=== PATIENT | female | born 1960 | race Caucasian/White ===

== ENCOUNTER 2016-07-23 08:04 | Emergency (ER) | payer OTHER ==
[~2016-07-23] VITALS: Ht 171.4 cm; Wt 61.4 kg
[~2016-07-23 08:04] MED LIST: ONDA4TAB12 PO; ZIT250 PO
[2016-07-23 08:05] VITALS: BP 147/96; PULSE 101; RESP 20; O2SAT 98
--- NOTE | 2016-07-23 08:37 | ED.REPORT ---
HPI-Syncope Date of Service Jul 23, 2016 ED Provider: Dr. Maldonado A 56 year old female with a history of chronic left elbow pain presents to the ED complaining of bilateral leg weakness that occurred yesterday while she was walking and talking on the phone at her Son's soccer game. She reports that she had no control of her legs, and "crumpled." She fell, and landed on her bad left elbow that is horribly painful now. She reports left hand finger tingling in thumb and first finger but she can still move them, this tingling sensation not being present before. She also has pain in right ear. She denies dizziness or, nausea. She denies any chest pain, SOB, lightheadedness, or dizziness overnight. Nursing Notes Stated Complaint: POSS BROKEN ARM/VERTIGO Chief Complaint: General Complaint Nursing Notes Reviewed: Yes Allergies: Coded Allergies: amoxicillin (Verified Adverse Reaction, Severe, nausea/vomiting, 07/23/16) Scheduled Azithromycin (Zithromax) 250 Mg Tablet 250 MG PO DAILY Ondansetron ODT (Ondansetron ODT) 4 Mg Tab.rapdis 4 MG PO QID General Time Seen by Provider: 08:36 Chief Complaint Other (weakness) Hx Obtained From: Patient Arrived By: Walk-in Onset Occurred: Yesterday Symptom Duration: Since onset Progression Since Onset: Unchanged Severity: Current: Mild Severity: Maximum: Mild Recent Healthcare: No recent doctor visit Similar Sx Previous: No Past Medical History Past Medical History Notes: PCP: [facility] Past Medical History Alcoholism Pancreatitis (2013) Denies prior [facility] Reports: Hypertension, Denies: Diabetes mellitus Past Surgical History left elbow Fx with surgery (same site as injury today) Smoking History Never Smoker Social History THC Chocolates that make her sleep, taken 6 over last week. Alcohol Use: 1-3 per day Drug Use: Denies drug use Ambulatory Status Independent Review of Systems Review of Systems Note: Has taken Vicodin in the past, "normally 2 pill person" Last meal was last night had water at 6 AM this morning Ears / Nose / Throat: Reports: Earache right Respiratory: Denies: Shortness of breath Cardiovascular: Denies: Chest pain GI: Denies: Nausea Musculoskeletal: Reports: Extremity pain (left elbow ) Neurologic: Reports: Numbness (left hand finger tingling), Weakness (legs), Denies: Dizziness, Lightheaded Complete sys rev & neg: except as marked. Physical Exam Initial Vital Signs Vital Signs (First) Date Time Temp Pulse Resp B/P Pulse Ox O2 Delivery O2 Flow Rate FiO2 07/23/16 08:05 36.0 101 20 147/96 98 Room Air Initial VS: Reviewed General/Constitutional: Awake, Alert Respiratory / Chest: Atraumatic, Breath sounds NL, Breath sounds = bilat, No respiratory distress, No rales, No rhonchi, No wheezing Cardiovascular: Heart rate NL, Regular rhythm, Heart sounds NL, No gallop, No murmurs, No rubs Lower Extremity / Pelvis / MS: Atraumatic, Inspection NL Neurologic: Oriented X3, Speech NL Non-focal neurologic exam Head / Eyes: Normocephalic, PERRL, EOMI ENT: Tympanic membs NL (Both ears are unremarkable. ) Mild tenderness in right TMJ joint, able to open jaw completely. Abdomen: No guarding, No rebound Skin: Warm, Dry Right Elbow: Positive: ROM reduced... Left elbow is obviously deformed, ecchymosis in proximal humerus and proximal forearm. Minor swelling down to hand and numbness in thumb and first and second fingers. Limited ROM due to pain. Surgical scars medially and laterally. Interpretation & Diagnostics Lab Results Interpretation Result Diagram: 07/23/16 0915 07/23/16 0915 Test 07/23/16 09:15 White Blood Count 8.5th/mm3 (3.8-10.1) Red Blood Count 3.98mil/mm3 (3.90-5.20) Hemoglobin 13.0g/dL (12.0-15.6) Hematocrit 40.4% (35.0-46.0) Mean Corpuscular Volume 101.5fL (81-100) Mean Corpuscular Hemoglobin 32.7pg (27.0-35.0) Mean Corpuscular Hemoglobin Concent 32.2% (32.0-37.0) Red Cell Distribution Width 12.6% (12.3-15.4) Platelet Count 210bil/L (150-400) Neutrophils (%) (Auto) 63.9% (40-74) Lymphocytes (%) (Auto) 26.0% (14-46) Monocytes (%) (Auto) 8.8% (4-12) Eosinophils (%) (Auto) 0.5% (0-5) Basophils (%) (Auto) 0.4% (0-3) Sodium Level 141mEq/L (134-144) Potassium Level 4.4mEq/L (3.5-5.2) Chloride Level 103mEq/L (97-108) Carbon Dioxide Level 18mmol/L (18-29) Blood Urea Nitrogen 25mg/dL (6-24) Creatinine 0.39mg/dL (0.57-1.00) Estimat Glomerular Filtration Rate 244mL/min (>59) Glucose Level 97mg/dL (60-99) Calcium Level 8.6mg/dL (8.5-10.1) Magnesium Level 2.1mg/dL (1.6-2.6) Total Bilirubin 0.2mg/dL (0.0-1.2) Aspartate Amino Transf (AST/SGOT) 34U/L (0-50) Alanine Aminotransferase (ALT/SGPT) 21U/L (0-32) Alkaline Phosphatase 45U/L (25-150) Troponin T < 0.010ug/L (0.0-0.011) Total Protein 7.5g/dL (6.4-8.4) Albumin 4.7g/dL (3.4-5.0) Alcohols 287mg/dL (0-10) Lab Results Interpretation: PROCEDURE: CT ELBOW LEFT W/O CONTRAST ([id number]) IMPRESSION: 1. Mildly displaced comminuted supracondylar distal humeral fracture demonstrates V-shaped intra-articular extension. 2. 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 Dictated by: Audie Yanez M.D. on 07/23/2016 at 10:17 Approved by: Audie Yanez M.D. on 07/23/2016 at 10:23 ECG Interpretation ECG Interpretation: Rate is 93. Sinus rhythm. No ischemia. Similar to 08/10/2015. Time: 09:06 Interpreted by: ED physician X-Ray Chest Interpretation Chest Xray Interpretation: IMPRESSION: No acute cardiopulmonary disease. Dictated by: Audie Yanez M.D. on 07/23/2016 at 9:00 Approved by: Audie Yanez M.D. on 07/23/2016 at 9:00 Interpretation / Wet Read by: Interpret - Radiologist X-Ray Interpretation Xray Interpretation: PROCEDURE: X-RAY LEFT FOREARM, TWO VIEWS ([id number]) Left Forearm XRay IMPRESSION: Distal comminuted humeral fracture. Question intra articular fracture. Order CT. [id number], 07/23/2016 Interpretation / Wet Read by: Anitha read ED physician Xray Interpretation: PROCEDURE: X-RAY LEFT HUMERUS, MINIMUM TWO VIEWS ([id number]) IMPRESSION: Mildly displaced supracondylar fracture of the distal humerus. Dictated by: Audie Yanez M.D. on 07/23/2016 at 9:49 Approved by: Audie Yanez M.D. on 07/23/2016 at 9:50 Interpretation / Wet Read by: Interpret - Radiologist Xray Interpretation: PROCEDURE: X-RAY LEFT FOREARM, TWO VIEWS ([id number]) IMPRESSION: Mildly displaced supracondylar fracture of the distal humerus. Dictated by: Audie Yanez M.D. on 07/23/2016 at 9:50 Approved by: Audie Yanez M.D. on 07/23/2016 at 9:51 Interpretation / Wet Read by: Interpret - Radiologist CT Head Interpretation IMPRESSION: No acute intracranial abnormalities. Dictated by: Audie Yanez M.D. on 07/23/2016 at 12:18 Procedures Procedure Notes: Left long-arm splint placed for comfort. Initial splint placed by the tech. Checked by me, neurovascularly intact. Still with the numbness in the thumb first and second finger as on initial presentation. Somewhat more comfortable with stabilization. Re-Eval/Medical Decision Med Decision/Clinical Course 56-year-old presents after a syncopal episode last night. She all of a sudden felt lightheaded legs were weak she fell to the ground landing on her left elbow. She comes in today complaining of left elbow pain. No chest pain or shortness of breath no dizziness and no acute neurologic signs aside from some numbness and tingling in the thumb first and second fingers related to the low injury. Syncopal workup is unremarkable with labs troponins EKG is reassuring. She does report an abnormal head CT a number of years ago that was supposed to be followed up. And then goes on to report 3 prior episodes similar to this in the last year. Head CT will be repeated at this time. Comminuted left interarticular distal humerus fracture. Reviewed by our orthopedists. Transfer to [facility] for surgical management. Splint placed for comfort. Minor decreased sensation in the thumb first and second fingers as mentioned otherwise neurovascularly intact. Alcoholism; she and her family are still in quite a bit of denial about the severity of this. Alcohol level this morning is 287 she states she had 2 glasses of wine last night. Starting to become a bit shaky and blood pressure increasing she has been here a couple of hours. 2 mg of Ativan given for withdrawal symptoms. Last meal was last night. She has been nothing by mouth while in the emergency department Source of Hx: Old records Re-Evaluation/Progress #1: Time of Eval: 08:56 Re-Evaluation/Progress Note: Explained plan for XRay. Patient understands and agrees with the plan. Re-Evaluation/Progress #2: Time of Eval: 09:34 Re-Evaluation/Progress Note: Rechecked patient and evaluated XRay results. Explained plan to perform CT. Re-Evaluation/Progress #3: Time of Eval: 10:48 Re-Evaluation/Progress Note: Discussed CT findings CT scan reviewed in the room at patient bedside. Informed her that orthopedic surgeon will be contacting us within half an hour with additional recommendations. Discussion regarding her alcohol level. Patient is aware that she is an alcoholic has been trying to substitute marijuana at night to reduce the amount of alcohol also recognizes that she has had issues with pills in the past. At this point not ready for treatment but says that she has been through treatment in the past and can certainly do it again. Re-Evaluation/Progress #4: Time of Eval: 11:22 Patient Status: Condition improved Re-Evaluation/Progress Note: Rechecked patient, explained consult with ortho, and explained plan for transfer to [facility]. Patient understands and agrees with the plan. All questions addressed. Re-Evaluation/Progress #5: Time of Eval: 11:35 Re-Evaluation/Progress Note: [facility] Discussed need for treating her developing alcohol withdrawal, we will add 2 mg by mouth Ativan now She describes a "funny finding" on a brain scan about 5 years ago that was supposed to be followed up. On further questioning she has had at least 3 episodes similar to this syncopal episode in the last year. Because of that we will go ahead and do a brain CT and make sure that the images are packs to [facility]. In discussion with accepting [facility] ER doctor Darion Glenn, he is aware of the syncope concern is the orthopedic concerns the alcohol concerns. We will send her to [facility] via BLS with all studies and labs available Re-Evaluation/Progress #6: Time of Eval: 12:40 Re-Evaluation/Progress Note: Ready For transport. Ativan helped significantly with the mild alcohol withdrawal. We will give her a milligram of IV Dilaudid for the arm pain in transit. Consultation #1: Referral / Consult Name: Krishna Flores MD Consulted With: Orthopedic Call Returned at: 10:35 Video Specialist: Agrees with eval, Agrees with plan Note: Discussed patient case with Dr. Flores via nurse. Dr. Flores will reuturn the call. Consultation #2: Referral / Consult Name: Krishna Flores MD Consulted With: Orthopedic Call Returned at: 11:13 Video Specialist: Agrees with eval, Agrees with plan Note: Discussed patient case with Dr. Flores who reviewed films. Severely comminuted in the setting of prior injury. clearly will need surgry, recomends transfer to [facility]. Consultation #3: Call Returned at: 11:32 Note: Discussed patient case with [facility]. Consultation #4: Referral / Consult Name: Krishna Flores MD Call Returned at: 11:47 Note: Discussed patient case in person with Dr. Flores who came down to the ED to ensure that the transfer process is going smoothly. Counseled Regarding: Diagnosis, Lab results, Need for follow-up, When/why to return to ED Discharge & Departure Impression: Primary Impression: Humerus distal fracture Encounter type: initial encounter Fracture type: closed Fracture morphology : other fracture Laterality: left Additional Impressions: Syncope Alcoholism Disposition: Transfer, Acute Care Facility Receiving Hospital: [facility] Transfer Accepted: Yes Transfer Reason: Higher level of care Discharge Condition All VS Reviewed: Yes Condition: Improved Referrals: Vaibhav Graham DO (PCP) Crit Care Except Billable Proc Time Spent: 30-74 minutes (37min) Zaynabibtrever Attestation Portions of this note were transcribed by Tian Go. I, Dr. Maldonado personally performed the history, physical exam and medical decision-making; I reviewed and confirmed the accuracy of the information in the transcribed note. Signed by: Cassie Castañeda, 07/23/2016, 1128. copies to: Vaibhav Graham Shawna L MD Jul 23, 2016 08:36 Tian Go Jul 23, 2016 08:54
[2016-07-23 09:00] VITALS: BP 138/88; PULSE 92; RESP 14; O2SAT 98
--- NOTE | 2016-07-23 09:02 | DRSVH ---
PROCEDURE: X-RAY CHEST ONE VIEW, PORTABLE ([id number]) INDICATIONS: 56 year-old female with syncope. TECHNIQUE: One view of the chest was acquired. COMPARISON: [facility], CR, XR CHEST 1VW (PORTABLE), 08/10/2015, 10:46. [facility], CR, CHEST 2VW, 11/13/2007, 11:51. FINDINGS: Surgical changes and devices: None. Lungs and pleura: No pleural effusions or pneumothorax. Lungs are clear. Mediastinum: Mediastinal contours appear normal. Heart size is normal. Bones and chest wall: No suspicious bony lesions. Overlying soft tissues appear unremarkable. IMPRESSION: No acute cardiopulmonary disease. Dictated by: Audie Yanez M.D. on 07/23/2016 at 9:00 Approved by: Audie Yanez M.D. on 07/23/2016 at 9:00
[2016-07-23] MEDS ORDERED: HYDROcodone-APAP 5-325 mg Tablet PO ONE (09:05)
[2016-07-23 09:45] VITALS: BP 127/70; PULSE 86; RESP 17; O2SAT 99
--- NOTE | 2016-07-23 09:51 | DRSVH ---
PROCEDURE: X-RAY LEFT HUMERUS, MINIMUM TWO VIEWS ([id number]) INDICATIONS: 56 year-old female with left arm pain after fall. TECHNIQUE: 2 views of the humerus were acquired. COMPARISON: None. FINDINGS: Bones: Mildly displaced supracondylar distal humeral fracture is present. No suspicious bony lesions . Soft tissues: No suspicious soft tissue calcifications. IMPRESSION: Mildly displaced supracondylar fracture of the distal humerus. Dictated by: Audie Yanez M.D. on 07/23/2016 at 9:49 Approved by: Audie Yanez M.D. on 07/23/2016 at 9:50
--- NOTE | 2016-07-23 09:52 | DRSVH ---
PROCEDURE: X-RAY LEFT FOREARM, TWO VIEWS ([id number]) INDICATIONS: 56 year-old female with left elbow pain after fall. TECHNIQUE: 2 views of the forearm were acquired. COMPARISON: [facility], , XR HUMERUS 2VW LT, 07/23/2016, 9:12. FINDINGS: Bones: Supracondylar fracture of the distal humerus is again noted. Radius and ulna appear intact. No suspicious bony lesions. Soft tissues: No suspicious soft tissue calcifications or masses. IMPRESSION: Mildly displaced supracondylar fracture of the distal humerus. Dictated by: Audie Yanez M.D. on 07/23/2016 at 9:50 Approved by: Audie Yanez M.D. on 07/23/2016 at 9:51
[2016-07-23 10:02] LABS: TROPONIN T < 0.010 ug/L (0.0-0.011)
[2016-07-23 10:06] LABS: Magnesium 2.1 mg/dL (1.6-2.6)
--- NOTE | 2016-07-23 10:24 | DRSVH ---
PROCEDURE: CT ELBOW LEFT W/O CONTRAST ([id number]) INDICATIONS: 56 year-old female with distal humeral supracondylar fracture. Assess for intra-articula r involvement. TECHNIQUE: Noncontrast 1-1.5 mm axial sections were acquired through the elbow joint, with coronal and sagittal reformats. COMPARISON: [facility], CR, XR HUMERUS 2VW LT, 07/23/2016, 9:12. [facility], CR, XR FOREARM 2VW LT, 07/23/2016, 9:12. FINDINGS: Image quality: Excellent. Bones: Mildly displaced comminuted supracondylar distal humeral fracture is present, with intra-artic ular fracture extension noted on coronal reformatted images. There is background medial elbow joint d egeneration, with irregular joint space narrowing and small osteophyte formation. Soft tissues: There is chondrocalcinosis. No overlying soft tissue hematomas identified. IMPRESSION: 1. Mildly displaced comminuted supracondylar distal humeral fracture demonstrates V-shaped intra-sara cular extension. 2. 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 Dictated by: Audie Yanez M.D. on 07/23/2016 at 10:17 Approved by: Audie Yanez M.D. on 07/23/2016 at 10:23
[2016-07-23 10:29] LABS: BASOPHILS % (AUTO) 0.4 % (0-3); EOSINOPHILS % (AUTO) 0.5 % (0-5); MONOCYTES % (AUTO) 8.8 % (4-12); Mean Corpuscular Hemoglobin 32.7 pg (27.0-35.0); Mean Corpuscular Volume 101.5 fL (81-100); NEUTROPHILS % (AUTO) 63.9 % (40-74); Platelet Count 210 bil/L (150-400)
[2016-07-23 12:00] VITALS: BP 135/88; PULSE 85; RESP 14; O2SAT 99
[2016-07-23] MEDS ORDERED: LORazepam 2 mg Tablet PO ONE (12:10)
--- NOTE | 2016-07-23 12:22 | DRSVH ---
PROCEDURE: CT BRAIN WITHOUT CONTRAST ([id number]) INDICATIONS: 56 year-old female with syncope and fall, with left humerus fracture. TECHNIQUE: Noncontrast 4.5 mm thick angled axial sections acquired from the foramen magnum to the vertex, with c oronal reformats. COMPARISON: [facility], CT, BRAIN W/O CONTRAST, 08/01/2013, 17:08. FINDINGS: Image quality: Excellent. CSF spaces: Basal cisterns are patent. No extra-axial fluid collections. Ventricles are normal in size and shape. Brain: No midline shift. No intracranial masses or hemorrhage. Peripheral pineal calcification is again noted. Harper-white matter interface is normal. Skull and face: Calvarium and visualized facial bones are intact, without suspicious lesions. Sinuses: Visualized sinuses and mastoids are clear. IMPRESSION: No acute intracranial abnormalities. Dictated by: Audie Yanez M.D. on 07/23/2016 at 12:18 Approved by: Audie Yanez M.D. on 07/23/2016 at 12:21
[2016-07-23] MEDS ORDERED: HYDROmorphone 1 mg/mL Inj IVPUSH ONE (12:40)
== END 2016-07-23 12:56 | disposition short-term general hospital (02) ==
LOC: SED 08:04
DX: S42.402A Unspecified fracture of lower end of left humerus, initial encounter for closed fracture (principal); W18.39XA Other fall on same level, initial encounter; Y92.89 Other specified places as the place of occurrence of the external cause; Y93.01 Activity, walking, marching and hiking; Y99.8 Other external cause status; F10.20 Alcohol dependence, uncomplicated; R55 Syncope and collapse; I10 Essential (primary) hypertension; Z88.1 Allergy status to other antibiotic agents
CPT/HCPCS: 29105; 36415; 70450; 71010; 73060; 73090; 73200; 80053; 82948; 83735; 84484; 85025; 93005; 96374; 99291; G0480; J1170